=== PATIENT | female | born 1955 | race Caucasian/White ===

== ENCOUNTER 2020-11-16 12:12 | Emergency (ER) | payer BC ==
[2020-11-16] MEDS ORDERED: RINGERS SOLUTION,LACTATED 1,000 ML IV ONE (12:59)
--- NOTE | 2020-11-16 13:02 | ER Document Report ---
ED Medical Screen (RME) - General Chief Complaint: Diarrhea Stated Complaint: DIAHERRA/CRAMPING Time Seen by Provider: 11/16/20 12:51 Primary Care Provider: TEJAL LOPEZ [Primary Care Provider] - Follow up as needed Notes: Patient states that she was positive for Covid 10 days ago. Patient does continue with mild cough. Patient complains of generalized weakness. Patient states she was at home and having a bowel movement. Patient states she had lower abdominal cramping with diarrhea and got diaphoretic and her weakness worsened. Patient with underlying history of hypertension. I have greeted and performed a rapid initial assessment of this patient. A comprehensive ED assessment and evaluation of the patient, analysis of test results and completion of the medical decision making process will be conducted by additional ED providers. - Related Data Allergies/Adverse Reactions: codeine [Codeine] Allergy (Verified 11/16/20 12:44) Past Medical History - Social History Chew tobacco use (# tins/day): No Frequency of alcohol use: None Drug Abuse: None Pulmonary Medical History: Reports: Hx Bronchitis Denies: Hx Tuberculosis Neurological Medical History: Denies: Hx Seizures Past Surgical History: Reports: Hx Hysterectomy. Denies: Hx Pacemaker - Immunizations Hx Diphtheria, Pertussis, Tetanus Vaccination: Yes Physical Exam - Vital signs Vitals: Temp Pulse Resp BP Pulse Ox 97.6 F 115 H 19 112/70 100 11/16/20 12:21 11/16/20 12:21 11/16/20 12:21 11/16/20 12:21 11/16/20 12:21 - Respiratory Respiratory status: No respiratory distress Breath sounds: Nonproductive cough - Cardiovascular Rhythm: Tachycardia Heart sounds: S1 appreciated, S2 appreciated Course - Vital Signs Vital signs: Temp Pulse Resp BP Pulse Ox 97.6 F 115 H 19 112/70 100 11/16/20 12:45 11/16/20 12:21 11/16/20 12:21 11/16/20 12:21 11/16/20 12:21 Doctor's Discharge - Discharge Referrals: TEJAL LOPEZ [Primary Care Provider] - Follow up as needed
[2020-11-16 14:03] LABS: ABSOLUTE LYMPHOCYTES (AUTO) 1.8 10^3/uL (0.5-4.7); ABSOLUTE MONOCYTES (AUTO) 0.9 10^3/uL (0.1-1.4); ABSOLUTE NEUT (AUTO) 13.8 10^3/uL (1.7-8.2); BASOPHILS % (AUTO) 0.2 % (0-2); EOSINOPHILS % (AUTO) 0.2 % (0-6); HEMATOCRIT 45.4 % (36.0-47.0); HEMOGLOBIN 15.5 g/dL (12.0-15.5); LYMPHOCYTES % (AUTO) 10.8 % (13-45); MEAN CORPUSCULAR HEMOGLOBIN 29.9 pg (27.0-33.4); MEAN CORPUSCULAR HGB CONC 34.2 g/dL (32.0-36.0); MEAN CORPUSCULAR VOLUME 87 fl (80-97); MONOCYTES % (AUTO) 5.5 % (3-13); PLATELET COUNT 412 10^3/uL (150-450); RED CELL DISTRIBUTION WIDTH 12.6 % (11.5-14.0); SEGMENTED NEUTROPHILS % (AUTO) 83.3 % (42-78); TOTAL CELLS COUNTED % (AUTO) 100 %; WHITE BLOOD COUNT 16.6 10^3/uL (4.0-10.5)
[2020-11-16 14:22] LABS: ALKALINE PHOSPHATASE 95 U/L (38-126); ANION GAP 12 (5-19); ASPARTATE AMINO TRANSFERASE 28 U/L (14-36); BILIRUBIN,DIRECT 0.1 mg/dL (0.0-0.4); BILIRUBIN,TOTAL 0.6 mg/dL (0.2-1.3); BLOOD UREA NITROGEN 20 mg/dL (7-20); CALCIUM 10.3 mg/dL (8.4-10.2); CARBON DIOXIDE 27 mmol/L (22-30); CHLORIDE 98 mmol/L (98-107); GLUCOSE 117 mg/dL (75-110); POTASSIUM 4.3 mmol/L (3.6-5.0); TOTAL PROTEIN 8.7 g/dL (6.3-8.2)
[2020-11-16 14:28] LABS: APPEARANCE,URINE CLOUDY; BILIRUBIN,URINE NEGATIVE (NEGATIVE); COLOR,URINE AMBER; GLUCOSE, URINE NEGATIVE (NEGATIVE); KETONES,URINE TRACE mg/dL (NEGATIVE); LEUKOCYTE ESTERASE,URINE TRACE (NEGATIVE); NITRITE,URINE NEGATIVE (NEGATIVE); PROTEIN,URINE 100 mg/dL (NEGATIVE); URINE SPECIFIC GRAVITY 1.028; UROBILINOGEN,URINE NEGATIVE mg/dL (<2.0)
--- NOTE | 2020-11-16 16:40 | RADIOLOGY REPORT (SQ) ---
EXAM DESCRIPTION: CHEST SINGLE VIEW IMAGES COMPLETED DATE/TIME: 11/16/2020 4:17 pm REASON FOR STUDY: cough, +covid COMPARISON: None. EXAM PARAMETERS: NUMBER OF VIEWS: One view. TECHNIQUE: Single frontal radiographic view of the chest acquired. RADIATION DOSE: NA LIMITATIONS: None. FINDINGS: LUNGS AND PLEURA: No opacities, masses or pneumothorax. No pleural effusion. MEDIASTINUM AND HILAR STRUCTURES: No masses. Contour normal. HEART AND VASCULAR STRUCTURES: Heart normal in size. Normal vasculature. BONES: No acute findings. HARDWARE: None in the chest. OTHER: No other significant finding. IMPRESSION: NO ACUTE RADIOGRAPHIC FINDING IN THE CHEST. TECHNICAL DOCUMENTATION: JOB ID: [id number] 2010 [employer]- All Rights Reserved Reading location - IP/workstation name: [email or web address]
--- NOTE | 2020-11-16 16:44 | ER Document Report ---
ED GI/ - General Chief Complaint: Diarrhea Stated Complaint: DIAHERRA/CRAMPING Time Seen by Provider: 11/16/20 12:51 Primary Care Provider: TEJAL LOPEZ [NO MASON NUNEZ] - Follow up as needed Notes: 11/16/20 12:46 - ED [facility] [id number] : 1955 Patient Age: 65 pt reports she has had 2 positive test for covid. states she went to [place] and had infusion for covid antibodies on tuesday in [place]. states she was fine this am. felt great. reports her is in the hospital with covid. 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 states this am she was on the toilet and the water was just coming out of her. states she was getting weaker and weaker. states she called ems. pt is alert and oriented. resp are even and unlabored. pt is speaking in full sentences. ED Medical Screen (Danae Ibarra)) - General Chief Complaint: Diarrhea Stated Complaint: DIAHERRA/CRAMPING Time Seen by Provider: 11/16/20 12:51 Primary Care Provider: TEJAL LOPEZ [Primary Care Provider] - Follow up as needed Notes: Patient states that she was positive for Covid 10 days ago. Patient does continue with mild cough. Patient complains of generalized weakness. Patient states she was at home and having a bowel movement. Patient states she had lower abdominal cramping with diarrhea and got diaphoretic and her weakness worsened. Patient with underlying history of hypertension. MY NOTES 65-year-old female arrives with chief complaint of having positive COVID-19 status post Covid antibodies 5 days ago on arrival. Patient reports her is in the hospital now with COVID-19. Patient works at senior care and patient reports she began to have massive amounts of diarrhea. Patient reports she was diagnosed with Covid around 10 days ago and her is upstairs in bed [address] with Covid now improving. Patient reports last Tuesday she was given monoclonal antibodies against Covid and felt fine until today when she went back to work at [employer]. She was feeling somewhat nauseated and went to the toilet while at work and had massive amounts of diarrhea with diaphoresis and severe weakness requiring 2 coworkers to get her off the toilet and to call 911 for her to come to the ER. Please note Eulalia Elva antibodies have 2 to 4% risk for nausea vomiting abdominal pain diarrhea on the line.. Patient was just placed on lisinopril HCTZ last week as well when it was found that she had hypertension. This Rx was via Joey at [employer].Patient's last meal was last night with chicken strips from [employer] some human some crackers and some fries - Related Data Allergies/Adverse Reactions: codeine [Codeine] Allergy (Verified 11/16/20 12:44) Past Medical History - General Information source: Patient - Social History Smoking Status: Never Smoker Cigarette use (# per day): No Chew tobacco use (# tins/day): No Smoking Education Provided: No Frequency of alcohol use: None Drug Abuse: None Lives with: Family Family History: Reviewed & Not Pertinent Patient has suicidal ideation: No Patient has homicidal ideation: No Pulmonary Medical History: Reports: Hx Bronchitis Denies: Hx Tuberculosis Neurological Medical History: Denies: Hx Seizures Past Surgical History: Reports: Hx Hysterectomy. Denies: Hx Pacemaker - Immunizations Hx Diphtheria, Pertussis, Tetanus Vaccination: Yes Review of Systems - Review of Systems Constitutional: See HPI, Diaphoresis, Malaise, Weakness, Recent illness EENT: No symptoms reported Cardiovascular: No symptoms reported Respiratory: No symptoms reported Gastrointestinal: See HPI, Abdominal pain, Diarrhea Genitourinary: No symptoms reported Female Genitourinary: No symptoms reported Musculoskeletal: No symptoms reported Skin: No symptoms reported Hematologic/Lymphatic: No symptoms reported Neurological/Psychological: No symptoms reported -: Yes All other systems reviewed and negative Physical Exam - Vital signs Vitals: Temp Pulse Resp BP Pulse Ox 97.6 F 115 H 19 112/70 100 11/16/20 12:21 11/16/20 12:21 11/16/20 12:21 11/16/20 12:21 11/16/20 12:21 Interpretation: Tachycardic - General General appearance: Appears well, Alert - HEENT Head: Normocephalic, Atraumatic Eyes: Normal Pupils: PERRL - Respiratory Respiratory status: No respiratory distress Chest status: Nontender Breath sounds: Normal Chest palpation: Normal - Cardiovascular Rhythm: Tachycardia Heart sounds: Normal auscultation Murmur: No - Abdominal Inspection: Normal Distension: No distension Bowel sounds: Normal Tenderness: Tender - Diffuse lower abdominal pain bilaterally. Patient's last meal was last night with chicken strips from [employer] some human some crackers and some fries Organomegaly: No organomegaly - Rectal Hemorrhoids: Other - Deferred - Genitourinary Bimanuel exam: Other - Deferred - Back Back: Normal, Nontender - Extremities General upper extremity: Normal inspection, Nontender, Normal color, Normal ROM, Normal temperature General lower extremity: Normal inspection, Nontender, Normal color, Normal ROM, Normal temperature, Normal weight bearing. No: Aníbal's sign - Neurological Neuro grossly intact: Yes Cognition: Normal Orientation: AAOx4 [place] Coma Scale Eye Opening: Spontaneous [place] Coma Scale Verbal: Oriented Oj Coma Scale Motor: Obeys Commands Oj Coma Scale Total: 15 Speech: Normal Motor strength normal: LUE, RUE, LLE, RLE Sensory: Normal - Psychological Associated symptoms: Normal affect, Normal mood - Skin Skin Temperature: Warm Skin Moisture: Dry Skin Color: Normal Course - Vital Signs Vital signs: Temp Pulse Resp BP Pulse Ox 98.3 F 95 18 133/94 H 99 11/16/20 19:27 11/16/20 19:27 11/16/20 19:27 11/16/20 19:27 11/16/20 19:27 - Laboratory Results Result Diagrams: 11/16/20 13:40 11/16/20 13:40 Laboratory Results Interpreted: 11/16/20 11/16/20 11/16/20 13:40 13:40 13:40 WBC 16.6 H Lymph % (Auto) 10.8 L Absolute Neuts (auto) 13.8 H Seg Neutrophils % 83.3 H Est GFR (MDRD) Non-Af 59 L Glucose 117 H Calcium 10.3 H Total Protein 8.7 H Urine Protein 100 H Urine Ketones TRACE H Ur Leukocyte Esterase TRACE H Urine Ascorbic Acid 40 H Critical Laboratory Results Reviewed: Yes Attending or Supervising Physician who Reviewed Labs: ZAY PEREZ JR - Radiology Results Radiology Results Interpreted: 11/16/20 18:18 roni Critical Radiology Results Reviewed: Yes Attending or Supervising Physician who Reviewed Radiology: ZAY PEREZ JR Critical Care Note - Critical Care Note Comments: I discussed this case with Dr. Los Anne he advised patient may be discharged return to ER as needed. Take medicines as directed Discharge - Discharge Clinical Impression: Gastroenteritis, Dehydration, Diarrhea due to COVID-19 Pneumonia Qualifiers: Pneumonia type: due to unspecified organism Laterality: right Lung location: lower lobe of lung Qualified Code(s): J18.9 - Pneumonia, unspecified organism Condition: Stable Disposition: HOME, SELF-CARE Additional Instructions: Follow-up with personal doctor this week; return to ER as needed; off work as directed ;take medicines as directed encourage fluids; please stay quarantined for another 1 week because of Covid-like pneumonia Prescriptions: Dexamethasone [Decadron 4 Mg Tablet] 4 mg PO DAILY #5 tablet Famotidine [Pepcid] 20 mg PO BID #20 tablet Azithromycin [Zithromax 250 mg Tablet] 250 mg PO ASDIR PRN #6 tablet PRN Reason: Forms: Return to Work Referrals: LOCALMD,NO [NO LOCAL MD] - Follow up as needed
[2020-11-16] MEDS ORDERED: NORMAL SALINE 1000 ML 1,000 ML IV PRN (16:49)
--- NOTE | 2020-11-16 18:23 | RADIOLOGY REPORT (SQ) ---
EXAM DESCRIPTION: CT ABD/PELVIS WITH IV ONLY IMAGES COMPLETED DATE/TIME: 11/16/2020 2:47 pm REASON FOR STUDY: diarrhea pos covid s/p antibodies for same COMPARISON: Abdominal ultrasound 05/19/2012. TECHNIQUE: CT scan of the abdomen and pelvis performed using helical scanning technique with dynamic intravenous contrast injection. No oral contrast. Images reviewed with lung, soft tissue, and bone windows. Reconstructed coronal and sagittal MPR images reviewed. Delayed images for evaluation of the urinary system also acquired. All images stored on PACS. All CT scanners at this facility use dose modulation, iterative reconstruction, and/or weight based d osing when appropriate to reduce radiation dose to as low as reasonably achievable (ALARA). [facility]: Dose Right [facility]: CareDose [facility]: Dose Right [facility]: Teradose 4D [facility]: Mobivity CONTRAST TYPE AND DOSE: contrast/concentration: Isovue 350.00 mmol/ml; Total Contrast Delivered: 94. 0 ml; Total Saline Delivered: 71.0 ml RENAL FUNCTION: Creatinine 0.95. RADIATION DOSE: CT Rad equipment meets quality standard of care and radiation dose reduction techniq ues were employed. CTDIvol: 7.2 - 7.3 mGy. DLP: 764 mGy-cm.. LIMITATIONS: None. FINDINGS: LOWER CHEST: Partially visualized mild ground-glass nodular opacities posterior right lowe r lobe. LIVER: Normal size. No masses. No dilated ducts. SPLEEN: Normal size. No focal lesions. PANCREAS: No masses. No significant calcifications. No adjacent inflammation or peripancreatic fluid collections. Pancreatic duct not dilated. GALLBLADDER: Surgically absent. ADRENAL GLANDS: No significant masses or asymmetry. RIGHT KIDNEY AND URETER: Tiny fat density lesion anterior right kidney compatible with an angiomyolip joy. No suspicious renal mass. No significant calcifications. No hydronephrosis or hydroureter. LEFT KIDNEY AND URETER: No solid masses. No significant calcifications. No hydronephrosis or hydr oureter. AORTA AND VESSELS: No aneurysm. No dissection. Renal arteries, SMA, celiac without stenosis. RETROPERITONEUM: No retroperitoneal adenopathy, hemorrhage or masses. BOWEL AND PERITONEAL CAVITY: Colon is decompressed, somewhat degrading evaluation. No significant wa ll thickening identified. Some nonspecific mild fluid-filled small bowel loops without dilatation. No adjacent inflammatory changes. APPENDIX: Normal. PELVIS: Urinary bladder is underdistended. Status posthysterectomy. No adnexal mass. ABDOMINAL WALL: No masses. No hernias. BONES: No significant or acute findings. OTHER: No other significant finding. IMPRESSION: 1. Portions of the colon and small bowel are underdistended, degrading evaluation. No significant bowel wall thickening or adjacent inflammatory change. 2. Partially visualized mild ground-glass nodular opacities posterior right lower lobe. Findings ar e nonspecific but could reflect mild infection. TECHNICAL DOCUMENTATION: JOB ID: [id number] Quality ID # [id number]: Final reports with documentation of one or more dose reduction techniques (e.g., Au tomated exposure control, adjustment of the mA and/or kV according to patient size, use of iterative reconstruction technique) 2010 [employer]- All Rights Reserved Reading location - IP/workstation name: [email or web address]
[2020-11-16 19:28] VITALS: BP 133/94
[2020-11-16] MEDS ORDERED: DEXAMETHASONE SOD PHOS INJ 10 MG/1 ML VIAL IV ONE (20:38)
[2020-11-16] MEDS ORDERED: AZITHROMYCIN INJ 500 MG VIAL IV ONE (20:38)
[2020-11-16] MEDS ORDERED: FAMOTIDINE INJ/PF 20 MG/2 ML SDV IV ONE (20:41)
--- NOTE | 2020-11-16 20:41 | EKG REPORT ---
SEVERITY:- OTHERWISE NORMAL ECG - SINUS TACHYCARDIA : Confirmed by: Maggie Alanis MD 16-Nov-2020 20:39:24
== END 2020-11-16 22:18 | disposition home or self-care (01) ==
LOC: ER 12:12
DX: U07.1 COVID-19 (principal); J18.9 Pneumonia, unspecified organism; K52.9 Noninfective gastroenteritis and colitis, unspecified; E86.0 Dehydration; R10.9 Unspecified abdominal pain; R53.1 Weakness
CPT/HCPCS: 93005; 99285; 96361; 96375; 96365; 36415; 87040; 83735; 85025; 80053; 81001; 84484; 71045; 74177; 93010; J7120; J0456; S0028; J1100